=== PATIENT | female | born 1980 | race Caucasian/White ===

== ENCOUNTER → 2019-02-04 | Outpatient (CLI) | payer MEDICAID, SELFPAY ==
[2019-02-04 12:50] VITALS: BMI 31.8
--- NOTE | 2019-02-04 12:59 | RAD_ITS ---
STUDY: X-RAY - RIGHT ANKLE REASON FOR EXAM: Female, 38 years old. Lateral pain after a fall TECHNIQUE: 3 view(s) of the ankle. COMPARISON: None. FINDINGS: Normal visualized distal tibia and fibula. Normal medial and lateral malleoli. Normal tibiotalar articulation and ankle mortise. Normal visualized talus and calcaneus. The visualized subtalar, talonavicular, calcaneocuboid and tarsal articulations are normal. The soft tissue structures are unremarkable. RAD/Ankle min 3 Views IMPRESSION: Normal x-ray examination of the ankle. Electronically Signed: Gabe Flores MD at 13:11 EDT , Service support ,
== END | disposition home or self-care (01) ==
LOC: HPRAD 12:58
PROVIDERS: Referring Provider Physician Assistant Surgical; Visit Provider Physician Assistant Surgical
DX: S96.911A Strain of unspecified muscle and tendon at ankle and foot level, right foot, initial encounter (principal)
CPT/HCPCS: 73610

== ENCOUNTER → 2019-05-23 | Outpatient (CLI) | payer MEDICAID, SELFPAY ==
[2019-05-23 13:34] VITALS: BMI 31.8
--- NOTE | 2019-05-23 13:50 | RAD_ITS ---
STUDY: X-RAY - RIGHT KNEE REASON FOR EXAM: Pain, injury. TECHNIQUE: 4 view(s) of the knee. COMPARISON: None. FINDINGS: Normal visualized distal femur. Normal visualized proximal tibia and fibula. Normal proximal tibiofibular articulation. Normal medial femorotibial compartment. Normal lateral femorotibial compartment. Normal patellofemoral articulation. The soft tissue structures are unremarkable. RAD/Knee 4 or More Views IMPRESSION: Normal x-ray examination of the right knee. Electronically Signed: Homer Smith MD at 15:07 EDT Tel , Service support ,
== END | disposition home or self-care (01) ==
LOC: HPRAD 13:49
PROVIDERS: Referring Provider Orthopaedic Surgery; Visit Provider Orthopaedic Surgery
DX: S89.91XA Unspecified injury of right lower leg, initial encounter (principal)
CPT/HCPCS: 73564

== ENCOUNTER → 2019-06-11 | Outpatient (CLI) | payer MEDICAID, SELFPAY ==
[2019-05-24 18:29] VITALS: BMI 31.8
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
== END | disposition home or self-care (01) ==
LOC: MRI 07:10
PROVIDERS: Referring Provider Orthopaedic Surgery; Visit Provider Orthopaedic Surgery
DX: S89.91XA Unspecified injury of right lower leg, initial encounter (principal)
CPT/HCPCS: 73721

== ENCOUNTER 2019-08-24 18:00 | Outpatient (RCR) | payer MEDICAID, SELFPAY ==
[2019-06-13 08:07] VITALS: BMI 31.8
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
--- NOTE | 2019-11-28 15:53 | HP.PTDCNRP_ITS ---
CINDI OSHEA was seen in my office for initial evaluation on 06/22/19. The following Plan of Care was established for this patient: Initial Frequency: 2-3x /Week Initial Duration: 6 Weeks Patient/Client Instruction: Educate patient on: Condition, Plan of Care For the Purpose of:: To decrease pain, To decrease swelling/inflammation, To increase ROM, To improve nutrient delivery to tissue, To improve muscle performance and motor function, To improve ability to perform ADL's, To increase tolerance to activity/condition/position, To improve performance and independence with ADL's, To decrease level of supervision to perform tasks, To improve ability of physical actions for home/community/work/leisure, To improve gait and locomotor functions, To improve health of tissue, To decrease soft tissue restriction, To increase flexibility/ROM, To improve endurance, To impro ve balance, To improve safety with gait Therapeutic Exercise to Include: Strength training, Balance training, Gait and locomotor training, Passive ROM, Active ROM For the Purpose of:: To decrease pain, To decrease swelling/inflammation, To increase ROM, To improve nutrient delivery to tissue, To improve muscle performance and motor function, To improve ability to perform ADL's, To increase tolerance to activity/condition/position, To improve performance and independence with ADL's, To decrease level of supervision to perform tasks, To improve ability of physical actions for home/community/work/leisure, To improve gait and locomotor functions, To improve health of tissue, To decrease soft tissue restriction, To increase flexibility/ROM, To improve endurance, To improve balance, To improve safety with gait Functional Training to Include: Gait training For the Purpose of:: To improve gait and locomotor functions, To improve safety with gait Manual Therapy Techniques to Include: Passive ROM For the Purpose of:: To increase ROM, To increase flexibility/ROM Other electric stimulation: Yes Cryotherapy (ice pack, ice massage): Yes For the Purpose of:: To decrease pain, To decrease swelling/inflammation, To increase ROM, To improve nutrient delivery to tissue This patient was last seen in our office 08/24/19. Pertinent comments regarding their Physical therapy will appear below: Pt no-showed for her last appointment. She will be discharged from our care at this time. At this point I will be discontinuing this patient from physical therapy. I would be happy to see this patient again in the future if found appropriate by the physician. Thank you! Misa Jones, MPT
== END 2019-08-24 19:00 | disposition home or self-care (01) ==
LOC: PT 18:00
PROVIDERS: Referring Provider Orthopaedic Surgery; Visit Provider Orthopaedic Surgery
DX: S83.411D Sprain of medial collateral ligament of right knee, subsequent encounter (principal); S83.511D Sprain of anterior cruciate ligament of right knee, subsequent encounter; S80.01XD Contusion of right knee, subsequent encounter
CPT/HCPCS: 97014; 97110; 97161; G0283

== ENCOUNTER → 2021-05-21 17:21 | Outpatient (CLI) | payer MEDICAID, SELFPAY ==
--- NOTE | 2021-05-21 17:29 | RAD_ITS ---
HISTORY: Cough EXAMINATION/TECHNIQUE: XR Chest 2 Views: 2 views COMPARISON: 05/10/21 FINDINGS: LINES/DEVICES: None. LUNGS: No pulmonary consolidation, mass, or edema. No pleural effusion or pneumothorax. MEDIASTINUM AND CARDIOVASCULAR STRUCTURES: Cardiac silhouette not enlarged. Central airways and mediastinal contour are unremarkable. BONES AND SOFT TISSUES: No acute bony abnormalities. RAD/Chest PA and Lateral IMPRESSION: No radiographic evidence of acute cardiopulmonary disease. at 1817 Reported and signed by: Mason Jensen MD Electronically Signed: Mason Jensen MD at 18:16 EDT Tel , Service support ,
== END ==
PROVIDERS: Referring Provider Physician Assistant Surgical; Visit Provider Physician Assistant Surgical
DX: R09.89 Other specified symptoms and signs involving the circulatory and respiratory systems (principal)
CPT/HCPCS: 71046

== ENCOUNTER → 2021-06-12 15:06 | Outpatient (CLI) | payer MEDICAID, SELFPAY | PROVIDERS: Referring Provider Physician Assistant Surgical; Visit Provider Physician Assistant Surgical | DX: J01.90 Acute sinusitis, unspecified (principal); J20.9 Acute bronchitis, unspecified | CPT/HCPCS: 87633 ==

== ENCOUNTER → 2021-06-28 07:19 | Outpatient (CLI) | payer MEDICAID, SELFPAY | DX: Z20.822 Contact with and (suspected) exposure to COVID-19 (principal) | CPT/HCPCS: 36415; 86769 ==

== ENCOUNTER → 2023-03-24 | Outpatient (CLI) | payer MEDICAID, SELFPAY ==
--- NOTE | 2023-03-24 13:28 | RAD_ITS ---
INDICATION: Pain EXAMINATION/TECHNIQUE: X-RAY - LEFT XR Ankle Min 3 Views 3 VIEWS COMPARISON: None. FINDINGS: SOFT TISSUES: Medial soft tissue swelling. No radiopaque foreign body. BONES/JOINTS: No acute fracture or subluxation.. Normal alignment. Preservation of the joint space.. No sclerotic or destructive changes observed. RAD/Ankle min 3 Views IMPRESSION: Medial soft tissue swelling. No acute osseous abnormality of the left ankle. Electronically Signed: Gabe El MD at 14:21 EDT Reading Location ID and State: [id number] / Unknown , Service support ,
--- NOTE | 2023-03-24 13:28 | RAD_ITS ---
INDICATION: Pain EXAMINATION/TECHNIQUE: X-RAY - LEFT XR Foot Min 3 Views 3 VIEWS COMPARISON: None. FINDINGS: SOFT TISSUES: No soft tissue swelling or gas. No radiopaque foreign body. BONES/JOINTS: No acute fracture or subluxation.. Normal alignment. Preservation of the joint space.. No sclerotic or destructive changes observed. RAD/Foot min 3 Views IMPRESSION: Normal left foot. Electronically Signed: Gabe El MD at 14:20 EDT Reading Location ID and State: [id number] / Unknown , Service support ,
== END | disposition home or self-care (01) ==
PROVIDERS: Visit Provider Physician Assistant
DX: M79.672 Pain in left foot (principal); M25.572 Pain in left ankle and joints of left foot
CPT/HCPCS: 73610; 73630

== ENCOUNTER → 2023-11-17 | Outpatient (CLI) | payer MEDICAID, SELFPAY ==
--- NOTE | 2023-11-17 11:40 | RAD_ITS ---
STUDY: X-RAY - LEFT FOOT CLINICAL: Female, 42 years old. left lateral foot pain, painful lump appeared along base of 5th metatarsal, injury in March 2023, pain since then. -- xrays were taken then - normal TECHNIQUE: 3 view(s) of the foot. COMPARISON: None. FINDINGS: There is no evidence of an acute fracture or displaced bony fragment. No sclerosis or callus formation is seen that would indicate prior healing. Normal talus, calcaneus, and tarsal bones. Normal visualized subtalar, talonavicular, calcaneocuboid, tarsal and tarsometatarsal articulations. Normal metatarsi. Normal metatarsophalangeal joint of the great toe. Normal tibial and fibular sesamoid bones. Normal interphalangeal joint of the great toe. Normal phalanges of the great toe. Normal second through fifth metatarsophalangeal joints. Normal interphalangeal joints and phalanges of the lesser toes. The soft tissue structures are unremarkable. RAD/Foot min 3 Views IMPRESSION: 1. Normal x-ray examination of the foot. Electronically Signed: Franky Pate MD at 12:55 EDT Reading Location ID and State: [facility] / [place] , Service support ,
--- OUTSIDE RECORDS SUMMARY | 2023-11-18 00:43 | XMS RPT_ITS | CCD ---
Author Name Unknown Address [address] [place] [address] Organization [facility] Care Team Providers Care Uniform Maker Name Role Phone DANA KELLY-FAMILY SERVICE WORKER, ASTRID Primary Care Phys ician Unavailable Primary Care Provider UnavailAmina Herrmann BIT GRINDER, Astrid Primary Care Provider Latoya Herrmann BIT GRINDER, Astrid(Historical) Primary Car e Provider Unavailable Unavailable Primary Care Provider UnavailMELANIE Moe Attending Unavailable MELANIE LOUIS Attending Unavailable MELANIE LOUIS Attending Unavailable DANA OCEAN FISHING GUIDE-FAMILY SERVICE WORKER, ASTRID Primary Care Phys ician MIKE OCEAN FISHING GUIDE-LEENA HARRIS Attending Unav ailable DANA OCEAN FISHING GUIDE-FAMILY SERVICE WORKER, ASTRID Primary Care U navailable DANA BRISENON-FAMILY SERVICE WORKER, ASTRID Primary Care U navailable MIKE OCEAN FISHING GUIDE-FAMILY SERVICE WORKERLEENA Attending Unav ailable DANA OCEAN FISHING GUIDE-FAMILY SERVICE WORKER, ASTRID Primary Care U navailable LATOYA-ALIZE OCEAN FISHING GUIDE-FAMILY SERVICE WORKER, ASTRID Attending U navailable LATOYA-ALIZE OCEAN FISHING GUIDE-FAMILY SERVICE WORKER, ASTRID Primary Care U navailable MIKE OCEAN FISHING GUIDE-FAMILY SERVICE WORKERLEENA Attending Unav ailable MIKE OCEAN FISHING GUIDE-FAMILY SERVICE WORKERLEENA Attending Unav ailable LATOYA-ALIZE OCEAN FISHING GUIDE-FAMILY SERVICE WORKER, ASTRID Primary Care U navailable LATOYA-ALIZE OCEAN FISHING GUIDE-FAMILY SERVICE WORKER, ASTRID Primary Care U navailable MIKE OCEAN FISHING GUIDE-FAMILY SERVICE WORKERLEENA Attending Unav LORENA Jeong MD Attending Unavailable DANA OCEAN FISHING GUIDE-FAMILY SERVICE WORKER, ASTRID Primary Care U FELTON Sykes MD Attending Unavailable [facility] LEENA Villatoro Attending [facility], [facility] U navailable SEDRICK RUSH DO Attending Unavailable LATOYA-HERRMANN OCEAN FISHING GUIDE-[facility], [facility] L[facility] Villatoro Attending [facility] LATOYA[facility], [facility] ANAI RAO, DR BARTON Attending Unavailable [facility], NAT Attending Unavailable Allergies Allergy Classification Reported Allergen(s) Allergy Type Date of Onset Reaction(s) Facility (19 sources) meloxicam; Translations: [meloxicam] Drug Allergy 10-20-2018 Nausea and vomiting (disorder), Itching, GI Upset, Rash [facility] Work Phone: (20 sources) Naproxen; Translations: [naproxen] Drug Allergy 10-20-2018 Nausea and vomiting (disorder), Mental Status Change, Itching, Vomiting, Rash, Shortness of Breath, Anxiety, Nausea And Vomiting [facility] Work Phone: (2 sources) meloxicam Drug Allergy 10-20-2018 Itching, Nausea And Vomiting, Rash [facility] Medications Current Medications Medication Drug Class(es) Dates Sig (Normalized) Sig (Original) acetaminophen 500 mg oral tablet (1 source) Start: 10-15-2022 End: 10-19-2022 take 2 tablets by mouth every eight hours as needed for pain acetaminophen (TYLENOL EXTRA STRENGTH) 500 mg tablet Indications: Strep throat Take 2 tablets by mouth every 8 hours as needed for pain or fever (specify) (100.5 or greater) for up to 4 days. FOR PAIN. 30 tablet 0 10/15/2022 10/19/2022 Active Completed/Discontinued Medications Medication Drug Class(es) Dates Sig (Normalized) Sig (Original) sensor 200 actuat albuterol 0.09 mg/actuat dry powder inhaler (11 sources) beta2-Adrenergic Agonist Start: 10-25-2018 albuterol sulfate 90 mcg/actuation aebs as needed. 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 Other diseases of kidney and ureters (5 sources) Hydronephrosis 12-30-2022 Episodic Other infections; including parasitic (1 source) History of parasitic disease; Translations: [Personal history of other infectious and parasitic diseases] Episodic Other inflammatory condition of skin (1 source) Seborrheic dermatitis; Translations: [Seborrheic dermatitis, unspecified] 05-20-2023 Episodic Other upper respiratory infections (2 sources) Chronic sinusitis; Translations: [Chronic sinusitis, unspecified] Onset: 08-02-2023 08-02-2023 Chronic Unclassified (12 sources) Eye glasses, device (physical object) 12-12-2014 Unclassified (12 sources) Throat clearing, function (observable entity) Onset: 09-07-2013 12-18-2014 Past or Other Problems Problem Classification Problem Date Documented Da te Episodic/Chronic Other diseases of kidney and ureters (2 sources) Unspecified hydronephrosis; Translations: [Unspecified hydronephrosis] Onset: 12-31-2022 Episodic Other infections; including parasitic (1 source) Personal history of other infectious and parasitic diseases; Translations: [History of pinworm infection] Onset: 09-17-2022 Episodic Other inflammatory condition of skin (2 sources) Seborrheic dermatitis, unspecified; Translations: [Seborrheic dermatitis, unspecified] Onset: 05-20-2023 Episodic Other upper respiratory infections (4 sources) Sore throat symptom; Translations: [Acute pharyngitis, unspecified] Onset: 10-15-2022 Episodic Results Test Name Value Interpretation Reference Range Facil ity Vital Signs Date Time Vital Sign Value Performing Clinician Facility 08-02-2023 11:10-0500 Body temperature 97.7 [degF] Melanie Louis DO Work Phone: [facility] 08-02-2023 11:10-0500 Body weight 89.81 kg Melanie Louis DO Work Phone: [facility] 08-02-2023 11:10-0500 Diastolic blood pressure 85 mm[Hg] Melanie Louis DO Work Phone: [facility] 08-02-2023 11:10-0500 Heart rate 72 /min Melanie Louis DO Work Phone: [facility] 08-02-2023 11:10-0500 Respiratory rate 16 /min Melanie Louis DO Work Phone: [facility] 08-02-2023 11:10-0500 SaO2% (BldA) [Mass fraction] 100 % Melanie Louis DO Work Phone: [facility] 08-02-2023 11:10-0500 Systolic blood pressure 130 mm[Hg] Melanie Louis DO Work Phone: [facility] 10-15-2022 10:20-0500 Body temperature 97.9 [degF] Melanie Louis DO Work Phone: [facility] 10-15-2022 10:20-0500 Body weight 83.83 kg Melanie Louis DO Work Phone: [facility] 10-15-2022 10:20-0500 Diastolic blood pressure 79 mm[Hg] Melanie Louis DO Work Phone: [facility] 10-15-2022 10:20-0500 Heart rate 58 /min Melanie Louis DO Work Phone: [facility] 10-15-2022 10:20-0500 Respiratory rate 18 /min Melanie Louis DO Work Phone: [facility] 10-15-2022 10:20-0500 SaO2% (BldA) [Mass fraction] 100 % Melanie Louis DO Work Phone: [facility] 10-15-2022 10:20-0500 Systolic blood pressure 123 mm[Hg] Melanie Louis DO Work Phone: [facility] 09-17-2022 18:04-0500 Body temperature 98.01 [degF] Melanie Louis DO Work Phone: [facility] 09-17-2022 18:04-0500 Body weight 86.18 kg Melanie Louis DO Work Phone: [facility] 09-17-2022 18:04-0500 Diastolic blood pressure 74 mm[Hg] Melanie Louis DO Work Phone: [facility] 09-17-2022 18:04-0500 Heart rate 73 /min Melanie Louis DO Work Phone: [facility] 09-17-2022 18:04-0500 Respiratory rate 16 /min Melanie Louis DO Work Phone: [facility] 09-17-2022 18:04-0500 SaO2% (BldA) [Mass fraction] 100 % Melanie Louis DO Work Phone: [facility] 09-17-2022 18:04-0500 Systolic blood pressure 118 mm[Hg] Melanie Louis DO Work Phone: [facility] 03-23-2022 09:24-0400 Body temperature 97.9 [degF] Jd Royal MD Work Phone: [facility] 03-23-2022 09:24-0400 Body weight 84.91 kg Jd Royal MD Work Phone: [facility] 03-23-2022 09:24-0400 Diastolic blood pressure 82 mm[Hg] Jd Royal MD Work Phone: [facility] 03-23-2022 09:24-0400 Heart rate 60 /min Jd Royal MD Work Phone: [facility] 03-23-2022 09:24-0400 Respiratory rate 18 /min Jd Royal MD Work Phone: [facility] 03-23-2022 09:24-0400 SaO2% (BldA) [Mass fraction] 100 % Jd Royal MD Work Phone: [facility] 03-23-2022 09:24-0400 Systolic blood pressure 142 mm[Hg] Jd Royal MD Work Phone: [facility] 09-27-2021 14:00-0500 Diastolic blood pressure 77 mm[Hg] LORENA WOODARD MD [facility] 09-27-2021 14:00-0500 Heart rate 100 /min LORENA WOODARD MD [facility] 09-27-2021 14:00-0500 Mean blood pressure 97 mm[Hg] LORENA WOODARD MD [facility] 09-27-2021 14:00-0500 Respiratory rate 25 /min LORENA WOODARD MD [facility] 09-27-2021 14:00-0500 Systolic blood pressure 136 mm[Hg] LORENA WOODARD MD [facility] 09-27-2021 13:55-0500 Heart rate 74 /min LORENA WOODARD MD [facility] 09-27-2021 12:41-0500 Body temperature 98.78 [degF] LORENA WOODARD MD [facility] 09-27-2021 12:41-0500 diastolic 86 mm[Hg] LORENA WOODARD MD [facility] 09-27-2021 12:41-0500 Heart rate 79 /min LORENA WOODARD MD [facility] 09-27-2021 12:41-0500 Respiratory rate 16 /min LORENA WOODARD MD [facility] 09-27-2021 12:41-0500 systolic 125 mm[Hg] LORENA WOODARD MD [facility] 09-26-2021 13:49-0500 Body height 160 cm LORENA WOODARD MD [facility] 09-26-2021 13:49-0500 Body weight 86.4 kg LORENA WOODARD MD [facility] 09-26-2021 13:49-0500 Body weight 33.75 kg/m2 LORENA WOODARD MD [facility] Encounters Encounter Date Encounter Type Care Provider Facility Start: 10-20-2023 Telephone encounter ALuis Carlos Wright [facility] Gastroenterology Procedures Date Procedure Procedure Detail Performing Clinician Start: 03-23-2022 Iaad ia streptococcu s group a Jd Royal MD Work Phone: Start: 03-23-2022 Adult depression scr eening assessment Jd Royal MD Work Phone: Start: 09-07-2014 Repair of umbilical hernia ASTRID CORTEZ OCEAN FISHING GUIDE-FAMILY SERVICE WORKER Start: 09-07-2011 Incisional hernia (disorder) ASTRID CORTEZ OCEAN FISHING GUIDE-FAMILY SERVICE WORKER Start: 09-07-2010 Excision of soft tissue ASTRID CORTEZ OCEAN FISHING GUIDE-FAMILY SERVICE WORKER Plan of Treatment Date Care Activity Detail Author Start: 2042 RSV Immunization aged 60 or older (1 - 1-dose 60+ series) RSV Immunization aged 60 or older (1 - 1-dose 60+ series) [facility] Start: 2032 Zoster Vaccines (1 of 2) Zoster Vaccines (1 of 2) [facility] Start: 07-25-2025 DTaP/Tdap/Td Vaccines (2 - Td or Tdap) DTaP/Tdap/Td Vaccines (2 - Td or Tdap) [facility] Start: 07-25-2025 Urine microalbumin profile DTaP,Tdap,Td Vaccine (2 - Td or Tdap) [facility] Start: 01-06-2024 End: 01-06-2024 Patient encounter procedure 01/06/2024 8:40 AM EDT Office Visit [facility] Gastroenterology [address] [place] [id number] Shirlene Dai APRN - FAMILY SERVICE WORKER [address] [place] [address] [facility] Start: 05-20-2023 End: 05-20-2023 Patient encounter procedure 05/20/2023 10:40 AM EDT Office Visit [facility] Dermatology [address] [place] [id number] Nat Morrow PA [address] [place] [address] [facility] Start: 05-08-2023 Influenza vaccination [facility] Start: 03-23-2023 Adult depression screening assessment DEPRESSION SCREENING [facility] Start: 2022 Mammography [facility] Start: 2022 Screening for malignant neoplasm of breast Mammogram [facility] Start: 09-07-2022 DEPRESSION ASSESSMENT DEPRESSION ASSESSMENT [facility] Start: 05-08-2022 Influenza vaccination INFLUENZA (#1) [facility] Start: 10-01-2015 Varicella vaccination Varicella Vaccines (1 of 2 - 2-dose childhood series) [facility] Start: 2012 HPV TESTING HPV TESTING [facility] Start: 2012 Screening for malignant neoplasm of cervix [facility] Start: 11-21-2003 PAP TESTING PAP TESTING [facility] Start: 11-21-2003 Screening for malignant neoplasm of cervix Pap Smear [facility] Start: 2001 DTaP/Tdap/Td Vaccines (1 - Tdap) DTaP/Tdap/Td Vaccines (1 - Tdap) [facility] Start: 2001 Urine microalbumin profile DTAP,TDAP,TD (1 - Tdap) [facility] Start: 2000 HEPATITIS C SCREENING HEPATITIS C SCREENING [facility] Start: 2000 Hepatitis C screening Hepatitis C Screening [facility] Start: 2000 HIV SCREENING HIV SCREENING [facility] Start: 1994 Depression Screening Depression Screening [facility] Start: 11-21-1983 MMR Vaccines (1 of 1 - Standard series) MMR Vaccines (1 of 1 - Standard series) [facility] Start: 11-21-1983 Varicella vaccination Varicella Vaccines (1 of 2 - 2-dose childhood series) [facility] Start: 05-23-1983 COVID-19 VACCINE (#1) COVID-19 VACCINE (#1) [facility] Start: 1982 HEPATITIS B (1 of 3 - 3-dose series) HEPATITIS B (1 of 3 - 3-dose series) [facility] Start: 1982 Hepatitis B Vaccine (1 of 3 - 3-dose series) Hepatitis B Vaccine (1 of 3 - 3-dose series) [facility] Start: 1982 Hepatitis B Vaccines (1 of 3 - 3-dose series) Hepatitis B Vaccines (1 of 3 - 3-dose series) [facility] Start: 1982 HIV screening HIV Screening [facility] Bacteria identified in Throat by Culture THROAT CULTURE Microbiology Routine Sore throat 03/23/2022 9:44 AM EDT [facility] Work Phone: Immunizations Immunization Date Immunization Notes Care Provider Fa cilijuan 07-16-2020 influenza virus vacc ine, unspecified formulation Nat STEELE Work Phone: [facility] Payers Date Payer Category Payer Medicaid [id number] 2020 Medicaid [employer] [id number] 2020-Present [phone] [address] [place] [address] Medicaid [id number] 2020 Medicaid [id number] 2020 Medicaid [id number] 1982 Unknown [id number] 1982 Unknown [id number]. 1982 Unknown [id number]. 1982 Unknown [id number]. 1982 Unknown [id number]. 1982 Unknown [id number]. 1982 Unknown [id number]. 1982 Unknown [id number] [id number]. 1982 Unknown [id number]. 1982 Unknown [id number] [id number]. 1982 Unknown [id number]. 1982 Unknown [id number] Social History Date Type Detail Facility Start: 08-04-2018 End: 09-17-2022 Never smoked tobacco (finding) [facility] Sex Assigned At Female [facility] Tobacco smoking status NHIS Tobacco smoking consumption unknown [facility] Start: 1980 Sex Assigned At Not on file [facility] Start: 03-23-2022 End: 09-17-2022 Tobacco use and exposure Smokeless tobacco non-user [facility] Start: 03-23-2022 End: 08-02-2023 Alcohol intake Ex-drinker (finding) [facility] Start: 03-13-2022 End: 05-20-2023 Exposure to SARS-CoV-2 (event) Not sure [facility] Start: 10-20-2018 End: 05-20-2023 Alcohol intake Current non-drinker of alcohol (finding) [facility] Start: 05-20-2023 End: 08-02-2023 Gender identity Not on file [facility] Start: 05-20-2023 End: 08-02-2023 History of Social function [facility] Adult Depression Screening Assessment 0 [facility] NEGATED: Highlighted rowStart: WOLFF History of tobacco use Passive smoker [facility] Clinical Notes 06-21-2020 to 10-21-2023 Telephone Encounter - Terrell Wright MA - 10/21/2023 8:35 AM ESTTelephone Encounter - Terrell Wright MA - 10/21/2023 8:35 AM ESTTelephone Encounter - Terrell Wright MA - 10/20/2023 10:42 AM EST Note Date & Type Note Facility 10-21-2023 Telephone encounter Note Formatting of this note might be differe nt from the original. Called pt to r/s her BIT GRINDER appt due to it being a change in the provider's schedule, pt did not answer LM and provided office number. [facility] 10-21-2023 Miscellaneous Notes Formatting of this note might be differe nt from the original. Called pt to r/s her BIT GRINDER appt due to it being a change in the provider's schedule, pt did not answer LM and provided office number. Called pt to r/s her BIT GRINDER appt scheduled on 10/21/23 w/ Crystal Meranto @ 2:00 pm, due to it being a change in the provider's schedule. Pt did not answer LM and provided office number. documented in this encounter [facility] 10-20-2023 Telephone encounter Note Formatting of this note might be differe nt from the original. Called pt to r/s her BIT GRINDER appt scheduled on 10/21/23 w/ Crystal Meranto @ 2:00 pm, due to it being a change in the provider's schedule. Pt did not answer LM and provided office number. [facility] 08-02-2023 Note HNO ID: [id number] Author: Melanie Louis, DO Service: ? Author Type: Physician Type: Progress Notes Filed: 08/02/2023 11:43 AM Note Text: Cindi Oshea is a 42 year old FEMALE who presents with Cough (Congestion 2 weeks) HPI History reviewed. No pertinent past medical history. There is no problem list on file for this patient. Current Outpatient Medications Medication Sig Dispense Refill ALBUTEROL INHALATION Inhale as instructed. vitamin Q-zccronuywdat-ggtvaxz 500 mg chew Take 1,000 mg by mouth. calcium carbonate (OS-MARK ANTHONY 500) 500 mg calcium (1,250 mg) tablet Take by mouth once daily. Ascorbic Acid (VITAMIN C) 100 mg tablet once daily. calcium phosphate dibas/vit D3 (VITAMIN D, WITH CALCIUM, ORAL) Vitamin D estradiol 5 mg/mL injection Inject 1 mg intramuscularly every 3 months. medroxyprogesterone acetate (DEPO-PROVERA INTRAMUSC.) every 3 months. amoxicillin (AMOXIL) 875 mg tablet Take 1 tablet by mouth two times a day for 10 days. 20 tablet 0 Amafkypizowrijz-Dpgxnfsht-MG (BROMFED DM) 2-30-10 mg/5 mL syrup Take 5 mL by mouth four times a day as needed for up to 7 days. 120 mL 0 dexAMETHasone (DECADRON) 4 mg tablet Take 1 tablet by mouth once daily for 4 days. 4 tablet 0 budesonide/formoterol fumarate (SYMBICORT INHALATION) Inhale as instructed. (Patient not taking: Reported on 10/15/2022) ferrous sulfate 325 mg (65 mg iron) tablet Take 325 mg by mouth. (Patient not taking: Reported on 10/15/2022) omeprazole (PRILOSEC) 40 mg capsule Take 40 mg by mouth once daily. (Patient not taking: Reported on 10/15/2022) albuterol sulfate 90 mcg/actuation aebs as needed. (Patient not taking: Reported on 10/15/2022) budesonide-formoterol (SYMBICORT) 160-4.5 mcg/actuation inhaler as needed. (Patient not taking: Reported on 10/15/2022) cetirizine (ZYRTEC) 10 mg tablet cetirizine 10 mg tablet take 1 tablet by mouth once daily (Patient not taking: Reported on 10/15/2022) colestipol (COLESTID) 1 gram tablet (Patient not taking: Reported on 10/15/2022) No current facility-administered medications for this visit. Social History Tobacco Use Smoking status: Never Passive exposure: Never Smokeless tobacco: Never Vaping Use Vaping Use: Never used Substance Use Topics Alcohol use: Not Currently Drug use: Not Currently Alcohol Use: Not Currently Tobacco Use: Never History reviewed. No pertinent family history. Review of Systems Constitutional: Positive for chills, fever and malaise/fatigue. HENT: Positive for ear pain, sinus pain and sore throat. Respiratory: Positive for cough, sputum production and wheezing. Musculoskeletal: Positive for myalgias. All other systems reviewed and are negative. BP 130/85 Pulse 72 Temp 97.7 Resp 16 Wt 198 lb (89.8kg) SpO2 100% Physical Exam Vitals and nursing note reviewed. Constitutional: Appearance: Normal appearance. HENT: Head: Normocephalic. Right Ear: Tympanic membrane normal. Left Ear: Tympanic membrane normal. Nose: Congestion and rhinorrhea present. Mouth/Throat: Pharynx: Posterior oropharyngeal erythema present. Eyes: Extraocular Movements: Extraocular movements intact. Pupils: Pupils are equal, round, and reactive to light. Cardiovascular: Rate and Rhythm: Normal rate and regular rhythm. Heart sounds: Normal heart sounds. Pulmonary: Effort: Pulmonary effort is normal. Breath sounds: Wheezing and rhonchi present. Musculoskeletal: General: Normal range of motion. Lymphadenopathy: Cervical: Cervical adenopathy present. Skin: General: Skin is warm. Capillary Refill: Capillary refill takes 2 to 3 seconds. Neurological: General: No focal deficit present. Mental Status: She is alert. Psychiatric: Mood and Affect: Mood normal. ASSESSMENT/PLAN: 1. Sinobronchitis - ICD9: 473.9, 490, ICD10: J32.9, J40 - AMOXICILLIN 875 MG TABLET - [id number] 2 MG-30 MG-10 MG/5 ML ORAL SYRUP - DEXAMETHASONE 4 MG TABLET Melanie D [facility] 08-02-2023 History of Present illness Narrative Formatting of this note is different fro m the original. Cindi Oshea is a 42 year old FEMALE who presents with Cough (Congestion 2 weeks) HPI History reviewed. No pertinent past medical history. There is no problem list on file for this patient. Current Outpatient Medications Medication Sig Dispense Refill ALBUTEROL INHALATION Inhale as instructed. vitamin L-tnimszzdlvvm-pnnfujf 500 mg chew Take 1,000 mg by mouth. calcium carbonate (OS-MARK ANTHONY 500) 500 mg calcium (1,250 mg) tablet Take by mouth once daily. Ascorbic Acid (VITAMIN C) 100 mg tablet once daily. calcium phosphate dibas/vit D3 (VITAMIN D, WITH CALCIUM, ORAL) Vitamin D estradiol 5 mg/mL injection Inject 1 mg intramuscularly every 3 months. medroxyprogesterone acetate (DEPO-PROVERA INTRAMUSC.) every 3 months. amoxicillin (AMOXIL) 875 mg tablet Take 1 tablet by mouth two times a day for 10 days. 20 tablet 0 Okgvvlzhspzihef-Bnggankcs-JH (BROMFED DM) 2-30-10 mg/5 mL syrup Take 5 mL by mouth four times a day as needed for up to 7 days. 120 mL 0 dexAMETHasone (DECADRON) 4 mg tablet Take 1 tablet by mouth once daily for 4 days. 4 tablet 0 budesonide/formoterol fumarate (SYMBICORT INHALATION) Inhale as instructed. (Patient not taking: Reported on 10/15/2022) ferrous sulfate 325 mg (65 mg iron) tablet Take 325 mg by mouth. (Patient not taking: Reported on 10/15/2022) omeprazole (PRILOSEC) 40 mg capsule Take 40 mg by mouth once daily. (Patient not taking: Reported on 10/15/2022) albuterol sulfate 90 mcg/actuation aebs as needed. (Patient not taking: Reported on 10/15/2022) budesonide-formoterol (SYMBICORT) 160-4.5 mcg/actuation inhaler as needed. (Patient not taking: Reported on 10/15/2022) cetirizine (ZYRTEC) 10 mg tablet cetirizine 10 mg tablet take 1 tablet by mouth once daily (Patient not taking: Reported on 10/15/2022) colestipol (COLESTID) 1 gram tablet (Patient not taking: Reported on 10/15/2022) No current facility-administered medications for this visit. Social History Tobacco Use Smoking status: Never Passive exposure: Never Smokeless tobacco: Never Vaping Use Vaping Use: Never used Substance Use Topics Alcohol use: Not Currently Drug use: Not Currently Alcohol Use: Not Currently Tobacco Use: Never History reviewed. No pertinent family history. Review of Systems Constitutional: Positive for chills, fever and malaise/fatigue. HENT: Positive for ear pain, sinus pain and sore throat. Respiratory: Positive for cough, sputum production and wheezing. Musculoskeletal: Positive for myalgias. All other systems reviewed and are negative. BP 130/85 Pulse 72 Temp 97.7 Resp 16 Wt 198 lb (89.8kg) SpO2 100% Physical Exam Vitals and nursing note reviewed. Constitutional: Appearance: Normal appearance. HENT: Head: Normocephalic. Right Ear: Tympanic membrane normal. Left Ear: Tympanic membrane normal. Nose: Congestion and rhinorrhea present. Mouth/Throat: Pharynx: Posterior oropharyngeal erythema present. Eyes: Extraocular Movements: Extraocular movements intact. Pupils: Pupils are equal, round, and reactive to light. Cardiovascular: Rate and Rhythm: Normal rate and regular rhythm. Heart sounds: Normal heart sounds. Pulmonary: Effort: Pulmonary effort is normal. Breath sounds: Wheezing and rhonchi present. Musculoskeletal: General: Normal range of motion. Lymphadenopathy: Cervical: Cervical adenopathy present. Skin: General: Skin is warm. Capillary Refill: Capillary refill takes 2 to 3 seconds. Neurological: General: No focal deficit present. Mental Status: She is alert. Psychiatric: Mood and Affect: Mood normal. ASSESSMENT/PLAN: 1. Sinobronchitis - ICD9: 473.9, 490, ICD10: J32.9, J40 - AMOXICILLIN 875 MG TABLET - [id number]-[id number]-GZ 2 MG-30 MG-10 MG/5 ML ORAL SYRUP - DEXAMETHASONE 4 MG TABLET Melanie Louis documented in this encounter [facility] 05-20-2023 History of Present illness Narrative Formatting of this note is different fro m the original. DATE OF SERVICE: 05/20/2023 PATIENT NAME: Cindi Oshea : 1980 AGE: 42 y.o. CLINIC NUMBER: [id number] Visit type: New Chief Complaint Patient presents with Seborrheic Dermatitis BIT GRINDER (RALPH) Subjective HISTORY OF PRESENT ILLNESS: This is a 42 y.o. female who presents for evaluation of red patch on forehead. Patient has seen a reactor kettle operator in the past, has seen Beata Soares PA-C. C/o-red patch to the forehead x few months coming and going. Admits redness, flaking. Denies scaling. Admits itching, burning. Denies pain. Admits previous treatment with lotions and vaseline. Patient states the area is worse in the winter. Currently using Noxema face wash. Are you , trying to become or ? No History of pacemaker/ defibrillator? No History of HIV/ Hep C? No Allergies to Lidocaine, Epinephrine, Latex or Adhesive? No Social History: Born/raised in [place]. Excessive sun exposure: Yes Boated regularly: No Worked on farmed or life teacher: No Used tanning beds: Yes Patient does wear SPF. Patient does use additional sun protection measures. REVIEW OF SYSTEMS: General/Constitutional Feels well; denies h/o fatigue, weight change, night sweats, fevers or chills. Lymphatic Denies swollen lymph nodes. Dermatologic As per HPI; denies new rashes, itching, hair loss, skin or nail changes. There were no vitals filed for this visit. GENERAL APPEARANCE:?Alert & oriented x3, pleasant. Well developed, well nourished. PSYCH: appropriate mood and affect 1. Seborrheic dermatitis Right Forehead Diffuse scaling with underlying erythema [x]Chronic []Acute []Stable [x]Flaring/Exacerbation Start: Ketoconazole cream twice daily Educated and reassured. Treatment options, risks, benefits, and expectations reviewed. Related Medications ketoconazole (NIZOral) 2 % cream Apply a thin layer to affected to areas 1-2x daily. Orders Placed This Encounter Medications ketoconazole (NIZOral) 2 % cream Sig: Apply a thin layer to affected to areas 1-2x daily. Dispense: 60 g Refill: 3 Follow up if symptoms worsen or fail to improve. IVETTE Walker 05/20/23 7:21 AM REFERRING MD: documented in this encounter [facility] 03-20-2023 Telephone encounter Note Formatting of this note might be differe nt from the original. Name of Caller: Cindi Contact Reason for Appointment: Pt states she is an old Pt of provider and would like to see about making an appt for her and her daughter on the same day. Pt states best time to reach her is on her lunch hr 12-12:30 or after 5:30. Please advise Office Name: [facility] [place] [facility] 03-20-2023 Miscellaneous Notes Formatting of this note might be differe nt from the original. Name of Caller: Cindi Contact Reason for Appointment: Pt states she is an old Pt of provider and would like to see about making an appt for her and her daughter on the same day. Pt states best time to reach her is on her lunch hr 12-12:30 or after 5:30. Please advise Office Name: [facility] [place] documented in this encounter [facility] 02-10-2023 Miscellaneous Notes Formatting of this note might be differe nt from the original. Received referral from Táximo. Called PT who sts she does not need an appt here are she has a urologist at [facility]. Jerome MCCRAY. Will notify Táximo. Rosamaria Remy documented in this encounter [facility] 10-15-2022 Note HNO ID: [id number] Author: Melanie Louis, DO Service: ? Author Type: Physician Type: Progress Notes Filed: 10/15/2022 11:31 AM Note Text: Cindi Oshea is a 41 year old FEMALE who presents with Sore Throat (Started yesterday /) HPI History reviewed. No pertinent past medical history. There is no problem list on file for this patient. Current Outpatient Medications Medication Sig Dispense Refill ALBUTEROL INHALATION Inhale as instructed. calcium carbonate (OS-MARK ANTHONY 500) 500 mg calcium (1,250 mg) tablet Take by mouth once daily. Ascorbic Acid (VITAMIN C) 100 mg tablet once daily. calcium phosphate dibas/vit D3 (VITAMIN D, WITH CALCIUM, ORAL) Vitamin D medroxyprogesterone acetate (DEPO-PROVERA INTRAMUSC.) every 3 months. amoxicillin (AMOXIL) 875 mg tablet Take 1 tablet by mouth twice daily for 10 days. 20 tablet 0 acetaminophen (TYLENOL EXTRA STRENGTH) 500 mg tablet Take 2 tablets by mouth every 8 hours as needed for pain or fever (specify) (100.5 or greater) for up to 4 days. FOR PAIN. 30 tablet 0 vitamin M-aggnkjpnbrmu-jmjlhuw 500 mg chew Take 1,000 mg by mouth. (Patient not taking: Reported on 10/15/2022) budesonide/formoterol fumarate (SYMBICORT INHALATION) Inhale as instructed. (Patient not taking: Reported on 10/15/2022) ferrous sulfate 325 mg (65 mg iron) tablet Take 325 mg by mouth. (Patient not taking: Reported on 10/15/2022) omeprazole (PRILOSEC) 40 mg capsule Take 40 mg by mouth once daily. (Patient not taking: Reported on 10/15/2022) albuterol sulfate 90 mcg/actuation aebs as needed. (Patient not taking: Reported on 10/15/2022) budesonide-formoterol (SYMBICORT) 160-4.5 mcg/actuation inhaler as needed. (Patient not taking: Reported on 10/15/2022) cetirizine (ZYRTEC) 10 mg tablet cetirizine 10 mg tablet take 1 tablet by mouth once daily (Patient not taking: Reported on 10/15/2022) colestipol (COLESTID) 1 gram tablet (Patient not taking: Reported on 10/15/2022) estradiol 5 mg/mL injection Inject 1 mg intramuscularly every 3 months. (Patient not taking: Reported on 10/15/2022) No current facility-administered medications for this visit. Social History Tobacco Use Smoking status: Never Passive exposure: Never Smokeless tobacco: Never Vaping Use Vaping Use: Never used Substance Use Topics Alcohol use: Not Currently Drug use: Not Currently Alcohol Use: Not Currently Tobacco Use: Never History reviewed. No pertinent family history. Review of Systems Constitutional: Positive for chills, fever and malaise/fatigue. HENT: Positive for congestion, sinus pain and sore throat. Respiratory: Positive for cough. All other systems reviewed and are negative. BP 123/79 Pulse 58 Temp (Src) 97.9 (Temporal) Resp 18 Wt 184 lb 12.8 oz (83.8kg) SpO2 100% Physical Exam Vitals and nursing note reviewed. Constitutional: Appearance: Normal appearance. HENT: Head: Normocephalic and atraumatic. Nose: Congestion and rhinorrhea present. Mouth/Throat: Pharynx: Oropharyngeal exudate and posterior oropharyngeal erythema present. Cardiovascular: Rate and Rhythm: Normal rate and regular rhythm. Pulses: Normal pulses. Heart sounds: Normal heart sounds. Pulmonary: Breath sounds: Wheezing and rhonchi present. Skin: General: Skin is warm. Capillary Refill: Capillary refill takes less than 2 seconds. Neurological: General: No focal deficit present. Mental Status: She is alert. ASSESSMENT/PLAN: 1. Strep throat - ICD9: 034.0, ICD10: J02.0 - suspect strep - Discussed supportive care treatment with fluids, rest and analgesia. - AMOXICILLIN 875 MG TABLET - ACETAMINOPHEN 500 MG TABLET Melanie Flower [facility] 10-15-2022 History of Present illness Narrative Formatting of this note is different fro m the original. Cindi Oshea is a 41 year old FEMALE who presents with Sore Throat (Started yesterday /) HPI History reviewed. No pertinent past medical history. There is no problem list on file for this patient. Current Outpatient Medications Medication Sig Dispense Refill ALBUTEROL INHALATION Inhale as instructed. calcium carbonate (OS-MARK ANTHONY 500) 500 mg calcium (1,250 mg) tablet Take by mouth once daily. Ascorbic Acid (VITAMIN C) 100 mg tablet once daily. calcium phosphate dibas/vit D3 (VITAMIN D, WITH CALCIUM, ORAL) Vitamin D medroxyprogesterone acetate (DEPO-PROVERA INTRAMUSC.) every 3 months. amoxicillin (AMOXIL) 875 mg tablet Take 1 tablet by mouth twice daily for 10 days. 20 tablet 0 acetaminophen (TYLENOL EXTRA STRENGTH) 500 mg tablet Take 2 tablets by mouth every 8 hours as needed for pain or fever (specify) (100.5 or greater) for up to 4 days. FOR PAIN. 30 tablet 0 vitamin D-lzjrogmmgued-bbgkcxa 500 mg chew Take 1,000 mg by mouth. (Patient not taking: Reported on 10/15/2022) budesonide/formoterol fumarate (SYMBICORT INHALATION) Inhale as instructed. (Patient not taking: Reported on 10/15/2022) ferrous sulfate 325 mg (65 mg iron) tablet Take 325 mg by mouth. (Patient not taking: Reported on 10/15/2022) omeprazole (PRILOSEC) 40 mg capsule Take 40 mg by mouth once daily. (Patient not taking: Reported on 10/15/2022) albuterol sulfate 90 mcg/actuation aebs as needed. (Patient not taking: Reported on 10/15/2022) budesonide-formoterol (SYMBICORT) 160-4.5 mcg/actuation inhaler as needed. (Patient not taking: Reported on 10/15/2022) cetirizine (ZYRTEC) 10 mg tablet cetirizine 10 mg tablet take 1 tablet by mouth once daily (Patient not taking: Reported on 10/15/2022) colestipol (COLESTID) 1 gram tablet (Patient not taking: Reported on 10/15/2022) estradiol 5 mg/mL injection Inject 1 mg intramuscularly every 3 months. (Patient not taking: Reported on 10/15/2022) No current facility-administered medications for this visit. Social History Tobacco Use Smoking status: Never Passive exposure: Never Smokeless tobacco: Never Vaping Use Vaping Use: Never used Substance Use Topics Alcohol use: Not Currently Drug use: Not Currently Alcohol Use: Not Currently Tobacco Use: Never History reviewed. No pertinent family history. Review of Systems Constitutional: Positive for chills, fever and malaise/fatigue. HENT: Positive for congestion, sinus pain and sore throat. Respiratory: Positive for cough. All other systems reviewed and are negative. BP 123/79 Pulse 58 Temp (Src) 97.9 (Temporal) Resp 18 Wt 184 lb 12.8 oz (83.8kg) SpO2 100% Physical Exam Vitals and nursing note reviewed. Constitutional: Appearance: Normal appearance. HENT: Head: Normocephalic and atraumatic. Nose: Congestion and rhinorrhea present. Mouth/Throat: Pharynx: Oropharyngeal exudate and posterior oropharyngeal erythema present. Cardiovascular: Rate and Rhythm: Normal rate and regular rhythm. Pulses: Normal pulses. Heart sounds: Normal heart sounds. Pulmonary: Breath sounds: Wheezing and rhonchi present. Skin: General: Skin is warm. Capillary Refill: Capillary refill takes less than 2 seconds. Neurological: General: No focal deficit present. Mental Status: She is alert. ASSESSMENT/PLAN: 1. Strep throat - ICD9: 034.0, ICD10: J02.0 - suspect strep - Discussed supportive care treatment with fluids, rest and analgesia. - AMOXICILLIN 875 MG TABLET - ACETAMINOPHEN 500 MG TABLET Melanie Louis documented in this encounter [facility] 09-19-2022 Miscellaneous Notes Formatting of this note might be differe nt from the original. Mom states that her meds were sent to [facility] and it should have been [facility], her 2 kids Gin Oshea 10-17-02 and Ervin Nowak 08-10-07 also need resent due to there was only 1 pill and should have been 2. Sravanthi Waters LPN documented in this encounter [facility] 09-17-2022 History and physical note Formatting of this note might be differe nt from the original. This is a 41-year-old female who has 2 pit bulls at home. 1 is positive for worms and may be roundworms could be pinworms of the second they are not certain if the second 1 is positive or not both dogs are frequently friendly and affectionate and lick the family members on the face and hands. The vet recommended that they all get either tested or treated. Nobody wants to get tested in this group I mention stool samples and it was met with carolee. We will go ahead and treat based on just the history The patient will be treated with Vermox 100 mg 2 today and then repeat in 1 week. The dogs are being treated for treated by a vet. documented in this encounter [facility] 05-14-2022 Note ORIGINAL EXAMINATION: CARDIAC SPECT05/14/2022 10:29 am TECHNIQUE: The patient received an intravenous injection of 8.1 mCi of Tc-99m Sestamibi and resting emission tomographic (SPECT) images of the myocardium were acquired. The patient then received an intravenous infusion of 0.4 mg regadenoson (Lexiscan) followed by an additional injection of 24.5 mCi of Tc-99m Sestamibi. Stress phase SPECT images of the myocardium were then acquired. These included ECG-gated images to assess and quantify ventricular function. Low dose CT was acquired for attenuation correction. COMPARISON: Myocardial stress test on 09/29/2014 HISTORY: ORDERING SYSTEM PROVIDED HISTORY: Reason for Exam: SOB chest pain, chest mass, family history of heart disease FINDINGS: Stress and rest images demonstrates grossly normal perfusion through the LV myocardium, without evidence of infarct or stress-induced ischemia. The LV chamber is normal in size. Gated post-stress images reveals normal myocardial contractility. The estimated LVEF is 64%. Low-dose CT demonstrates no overt abnormalities. IMPRESSION: 1. No evidence of infarct or ischemia. 2. LV chamber is normal in size. 3. Normal LV wall motion, with LVEF of 64%. I have personally reviewed the images of this examination and agree with the resident's findings and interpretation. Interpreted by: Ian Hardy DO Preliminary Report By: Jeffrey Viri Electronically signed By Ian Hardy DO Dictated Date: 05/14/2022 11:06:30 AM Prelim Date: 05/14/2022 12:37:15 PM Sign Date: 05/14/2022 12:37:15 PM Ordering Provider: [facility] 05-14-2022 Note DATE OF PROCEDURE: 05/14/2022 Pharmacological stress testing was performed with regadenoson. A dose of 0.4 mg was infused as per protocol. The resting heart rate was 76 beats per minute and increased to 129 beats per minute during the infusion. Resting blood pressure was 145/90 and decreased to 120/76, which is a normal response. The patient developed only nonspecific symptoms, which all resolved at recovery. Rest EKG demonstrated normal sinus rhythm without ST segment changes consistent with myocardial ischemia. During the stress test the patient did not develop EKG changes suggestive of ischemia. IMPRESSION: The EKG portion of the Lexiscan stress test is negative for inducible ischemia. Results of nuclear images will be reported separately. IAN KAUR MD DN/NTS JOB#: [id number] DICTATION ID#: [id number] Digitally Signed by IAN KAUR MD on 05/14/2022 06:52 PM Digitally Signed by MERLENE CARL MD [facility] 05-14-2022 Note ORIGINAL EXAMINATION: CARDIAC SPECT05/14/2022 10:29 am TECHNIQUE: The patient received an intravenous injection of 8.1 mCi of Tc-99m Sestamibi and resting emission tomographic (SPECT) images of the myocardium were acquired. The patient then received an intravenous infusion of 0.4 mg regadenoson (Lexiscan) followed by an additional injection of 24.5 mCi of Tc-99m Sestamibi. Stress phase SPECT images of the myocardium were then acquired. These included ECG-gated images to assess and quantify ventricular function. Low dose CT was acquired for attenuation correction. COMPARISON: Myocardial stress test on 09/29/2014 HISTORY: ORDERING SYSTEM PROVIDED HISTORY: Reason for Exam: SOB chest pain, chest mass, family history of heart disease FINDINGS: Stress and rest images demonstrates grossly normal perfusion through the LV myocardium, without evidence of infarct or stress-induced ischemia. The LV chamber is normal in size. Gated post-stress images reveals normal myocardial contractility. The estimated LVEF is 64%. Low-dose CT demonstrates no overt abnormalities. IMPRESSION: 1. No evidence of infarct or ischemia. 2. LV chamber is normal in size. 3. Normal LV wall motion, with LVEF of 64%. I have personally reviewed the images of this examination and agree with the resident's findings and interpretation. Interpreted by: Ian Hardy DO Preliminary Report By: Jeffrey Meredith Electronically signed By Ian Hardy DO Dictated Date: 05/14/2022 11:06:30 AM Prelim Date: 05/14/2022 12:37:15 PM Sign Date: 05/14/2022 12:37:15 PM Ordering Provider: [facility] 03-23-2022 Instructions Jd Royal MD - 03/23/2022 9:40 AM EDT Gargle, lozenges OTC med as needed Recheck if any change F/u PCP explained details documented in this encounter [facility] 03-23-2022 History of Present illness Narrative Cindi Oshea is a 41 year old FEMALE who presents with Sore Throat (5 days only hurts when swollowing, feels lump on right side of neck) Sore throat 5 days Hurts to swallow, no cough History reviewed. No pertinent past medical history. There is no problem list on file for this patient. Current Outpatient Medications Medication Sig Dispense Refill albuterol sulfate 90 mcg/actuation aebs as needed. calcium carbonate (CALCIUM 500) 500 mg calcium (1,250 mg) tablet Take by mouth once daily. budesonide-formoterol (SYMBICORT) 160-4.5 mcg/actuation inhaler as needed. Ascorbic Acid (VITAMIN C) 100 mg tablet once daily. cetirizine (ZYRTEC) 10 mg tablet cetirizine 10 mg tablet take 1 tablet by mouth once daily colestipol (COLESTID) 1 gram tablet estradiol 5 mg/mL injection Inject 1 mg intramuscularly every 3 months. medroxyprogesterone acetate (DEPO-PROVERA INTRAMUSC.) every 3 months. calcium phosphate dibas/vit D3 (VITAMIN D, WITH CALCIUM, ORAL) Vitamin D (Patient not taking: Reported on 03/23/2022) No current facility-administered medications for this visit. Social History Tobacco Use Smoking status: Never Smoker Smokeless tobacco: Never Used Vaping Use Vaping Use: Never used Substance Use Topics Alcohol use: Not Currently Drug use: Never Alcohol Use: Not Currently Tobacco Use: Never History reviewed. No pertinent family history. Review of Systems HENT: Positive for sore throat. All other systems reviewed and are negative. BP 142/82 Pulse 60 Temp 97.9 Resp 18 Wt 187 lb 3.2 oz (84.9kg) SpO2 100% Physical Exam Vitals reviewed. Constitutional: Appearance: Normal appearance. HENT: Nose: Nose normal. Mouth/Throat: Pharynx: Posterior oropharyngeal erythema (injected pharynx) present. Cardiovascular: Rate and Rhythm: Normal rate and regular rhythm. Heart sounds: Normal heart sounds. Pulmonary: Effort: Pulmonary effort is normal. Breath sounds: Normal breath sounds. Neurological: Mental Status: She is alert. ASSESSMENT/PLAN: 1. Sore throat - ICD9: 462, ICD10: J02.9 (primary diagnosis) - RAPID GROUP A STREP RFLX TO CULT - THROAT CULTURE 2. Viral pharyngitis - ICD9: 462, ICD10: J02.9 Gargle, lozenges OTC med as needed Recheck if any change F/u PCP explained details Jd Royal MD documented in this encounter [facility] 07-04-2021 Evaluation + Plan note Future Scheduled TestsCT Thorax w/ Contrast 07/04/21 [facility] 07-04-2021 Evaluation + Plan note Future Scheduled TestsCT Thorax w/ Contrast 07/04/21 [facility] 06-21-2020 History of Present illness Narrative DATE OF SERVICE: 06/21/2020 REASON FOR VISIT: Chest pain when coughing. HISTORY OF PRESENT ILLNESS: This is a 39-year-old female who has been having some coughing and pressure in the chest for the last 3 weeks. She also has pain when she lies down in the front of her chest. No shortness of breath. Patient stated that [place] her symptoms happened, and later on, gradually started having symptoms of congestion and coughing and then chest discomfort. Denied any chest pain otherwise. She also had been doing some lifting activities recently, although that activity has now stopped. It slightly hurts when she pushes on her ribs on the front of her chest wall. No fever or chills. No body aches. No nausea, vomiting, or diarrhea. She has not been exposed to COVID-19 patients. ALLERGIES: NAPROXEN and MOBIC. MEDICATIONS: Reviewed. PHYSICAL EXAMINATION: She is awake, alert, not in distress. No dyspnea. She does not look ill. Temperature 97.8, blood pressure 127/89, pulse 68, respirations 14, pulse oximetry 98%. Pain score 6/10. HEENT: Unremarkable. Chest has minimal rhonchi. No wheezing. Heart: Regular rate and rhythm. She has mild discomfort on the pressure on the anterior chest wall on both sides. It is reproducible tenderness, but not very significant. Good chest expansion. Breath sounds were equal on both sides. IMAGING: Chest x-ray did not show any acute changes. ASSESSMENT: Acute bronchitis with chest wall strain. PLAN: Clinical findings were discussed with the patient in detail. I explained to her that the symptoms are most likely from mild bronchitis. It has been going on for 3 weeks; so, I decided to treat her with Z-Lamin as directed, 1 pack with no refills. She can take Mucinex and cough medicine as needed. Regarding the pain, there is reproducible pain on the upper part of her anterior chest wall. This is most likely due to chest wall strain from her lifting recently. I explained to her that the radiologist will review and give the final x-ray report, but I did not see anything significant on the chest x-ray. She should follow with her doctor for further evaluation and care. Patient understands and agrees. Her questions were answered to her satisfaction. Jd Royal MD [id number] SSI File#: [id number] END OF DOCUMENT / CHANGE LOG FOLLOWS Last Edited By Elec. Signed By Jd Royal MD #[id number] Jd Royal MD #[facility] on 06/21/2020 14:42 ET on 06/21/2020 14:42 ET Revision Number - 2 ^^^ Verified/Reviewed by 06/21/20 1442 [facility] PATIENT NAME: CINDI OSHEA [address] [address] Juares MEDICAL REC #: [id number] [place] [address] [facility] REPORT [facility] PHYSICIAN documented in this encounter [facility] Evaluation + Plan note Future Appointments Appointment Date:05/31/2022 01:30:00 PM Scheduled Provider: Location:XRAY Appointment Type:CT Chest w/ Contrast Future Scheduled TestsCT Thorax w/ Contrast 07/04/21 [facility] Evaluation + Plan note Future Appointments Appointment Date:06/27/2022 07:00:00 AM Scheduled Provider: Location:[facility] Appointment Type:CV Procedure - Echo (Adult) Future Scheduled TestsCT Thorax w/ Contrast 07/04/21 [facility] Evaluation + Plan note Future Appointments Appointment Date:12/31/2022 09:00:00 AM Scheduled Provider: Location:[facility] Appointment Type:[place] Mammogram Screening Bilateral w/ Farhan Appointment Date:01/13/2023 07:00:00 AM Scheduled Provider: Location:CT Appointment Type:CT Urogram Future Scheduled TestsBasic Metabolic Panel 12/30/22[facility] Mammo Screening Bilateral w/ Farhan 12/31/22CT Urogram 01/13/23 [facility] Evaluation + Plan note Future Appointments Appointment Date:02/10/2023 09:00:00 AM Scheduled Provider:LEENA MCKEON Location:UROLOGY Appointment Type:URO OV Diagnostic Tests PendingTGT Ab (IGA) 01/14/23Gliadin Antibody 01/14/23 [facility] Evaluation + Plan note Future Appointments Appointment Date:03/04/2023 08:20:00 AM Scheduled Provider:LEENA MCKEON Location:UROLOGY Appointment Type:URO OV [facility] Evaluation + Plan note Future Appointments Appointment Date:09/16/2023 08:20:00 AM Scheduled Provider:LEENA MCKEON Location:UROLOGY Appointment Type:URO OV Future Scheduled TestsUS Renal 09/03/23 [facility] Evaluation + Plan note Future Appointments Appointment Date:09/21/2024 08:20:00 AM Scheduled Provider:LEENA MCKEON Location:UROLOGY Appointment Type:URO OV Future Scheduled TestsUS Renal 09/16/24 [facility] documented in this encounter [facility] note* Diagnosis History of pinworm infection- Primary Personal history of other infectious and parasitic disease documented in this encounter [facility] note* Diagnosis Strep throat- Primary Streptococcal sore throat documented in this encounter [facility] note* Diagnosis Seborrheic dermatitis Unspecified seborrheic dermatitis documented in this encounter [facility] note* Diagnosis Sinobronchitis- Primary Unspecified sinusitis (chronic) documented in this encounter [facility] course Narrative No data available for this section [facility] Hospital Discharge instructions No data available for this section [facility] Progress note No data available for this section [facility] Summary Purpose Family History No Family History Records Found No data available for this section No Family History Records FoundNo Family History Records Found Advance Directives No Advanced Directives Records FoundNo Advanced Directives Records FoundNo Advanced Directives Records Found Additional Source Comments Source Comments (unrecognize d section and content) In the event this informatio n is protected by the Federal Confidentiality of Alcohol and Drug Abuse Patient Records regulations: The Federal rules restrict any use of the information to criminally investigate or prosecute any alcohol or drug abuse patient.[facility] the event this information is protected by the Federal Confidentiality of Alcohol and Drug Abuse Patient Records regulations: The Federal rules restrict any use of the information to criminally investigate or prosecute any alcohol or drug abuse patient.[facility] SystemIn the event this information is protected by the Federal Confidentiality of Alcohol and Drug Abuse Patient Records regulations: The Federal rules restrict any use of the information to criminally investigate or prosecute any alcohol or drug abuse patient.[facility]In the event this information is protected by the Federal Confidentiality of Alcohol and Drug Abuse Patient Records regulations: The Federal rules restrict any use of the information to criminally investigate or prosecute any alcohol or drug abuse patient.[facility]In the event this information is protected by the Federal Confidentiality of Alcohol and Drug Abuse Patient Records regulations: The Federal rules restrict any use of the information to criminally investigate or prosecute any alcohol or drug abuse patient.[facility] SystemIn the event this information is protected by the Federal Confidentiality of Alcohol and Drug Abuse Patient Records regulations: The Federal rules restrict any use of the information to criminally investigate or prosecute any alcohol or drug abuse patient.[facility] SystemIn the event this information is protected by the Federal Confidentiality of Alcohol and Drug Abuse Patient Records regulations: The Federal rules restrict any use of the information to criminally investigate or prosecute any alcohol or drug abuse patient.[facility] Reason for Visit (unrecogniz ed section and content) Reason Comments Abdominal Pain Patient seeing a GI specialist for ongoing issueBlurred vision todayCurrent concern family pet being treated for worms Reason Comments Medication Problem Reason Comments Sore Throat Started yesterday Reason Comments Appointment Reason Onset Date Comments Appointment Request 03/20/2023 Reason Comments Seborrheic Dermatitis BIT GRINDER (ROHIT) Specialty Diagnoses / Procedures Referred By Contac t Referred To Contact Dermatology Diagnoses Red, itchy spot on forehead Procedures Self Referral [facility] Derm [address] [place] [address] [facility] Derm [address] [place] [address] Referral ID Status Reason Start Date Expiration Date V isits Requested Visits Authorized [id number] Pending Review 03/26/2023 03/25/2024 1 1 Reason Comments Cough Congestion 2 weeks Reason Onset Date Comments Appointment 10/20/2023 Rescheduling Care Teams (unrecognized sec tion and content) Uniform Maker Relationship Specialty Start Date End Date Astrid Cadet(Historical), BIT GRINDER PCP - General Family Medicine 03/23/22 Uniform Maker Relationship Specialty Start Date End Date Astrid Cadet(Historical), BIT GRINDER PCP - General Family Medicine 03/23/22 Uniform Maker Relationship Specialty Start Date End Date Astrid Cadet(Historical), BIT GRINDER PCP - General Family Medicine 03/23/22 Uniform Maker Relationship Specialty Start Date End Date Astrid Cadet(Historical), BIT GRINDER PCP - General Family Medicine 03/23/22 Uniform Maker Relationship Specialty Start Date End Date Astrid Cadet(Historical), BIT GRINDER PCP - General Family Medicine 03/23/22 Care Team (unrecognized sect ion and content) Care Team Personnel Name: LORENA WOODARD MD Position: P3 Physician - Landscaper Med Service: Active Provider Member Role: Religious Activities Director Address: Address: [address] [address] Name: ASTRID CORTEZ OCEAN FISHING GUIDE-FAMILY SERVICE WORKER Position: Advanced Practice Nurse Med Service: Active Provider Member Role: Primary Care Physician Address: Address: [address] [place] [address], [place] [address]- [place] Care Team Related Persons Name: MARBELLA IZQUIERDO Name: MARBELLA IZQUIERDO Name: ARABELLA IZQUIERDO Name: PATTIE OSHEA Address: Home [id number] [place] [phone] [place] Name: DIANA OSHEA C Address: Home [id number] [place] [phone] [place] Name: RONEL MCKINNEY Care Team Personnel Name: LORENA WOODARD MD Position: P3 Physician - Landscaper Med Service: Active Provider Member Role: Religious Activities Director Address: Address: [address] [place] [address], [facility]- Name: ASTRID CORTEZFAMILY SERVICE WORKER Position: Advanced Practice Nurse Med Service: Active Provider Member Role: Primary Care Physician Address: Address: [address] [place] [address]- Care Team Related Persons Name: MARBELLA IZQUIERDO Name: MARBELLA IZQUIERDO Name: ARABELLA IZQUIERDO Name: PATTIE OSHEA Address: Home [id number] [place] [phone] [place] Name: DIANA OSHEA Address: Home [address] [place] [phone] [place] Name: RONEL MCKINNEY Care Team Personnel Name: LORENA WOODARD MD Position: P3 Physician - Landscaper Med Service: Active Provider Member Role: Religious Activities Director Address: Address: [address] [place] [address], [place] [address]- Name: ASTRID CORTEZFAMILY SERVICE WORKER Position: Advanced Practice Nurse Med Service: Active Provider Member Role: Primary Care Physician Address: Address: [address] [place] [address]- Care Team Related Persons Name: MARBELLA IZQUIERDO Name: MARBELLA IZQUIERDO Name: ARABELLA IZQUIERDO Name: PATTIE OSHEA Address: Home [address] [place], [place] [phone] [place] Name: DIANA OSHEA C Address: Home [address] [place] [phone] Name: RONEL MCKINNEY Care Team Personnel Name: LORENA WOODARD MD Position: P3 Physician - Landscaper Med Service: Active Provider Member Role: Religious Activities Director Address: Address: [address] [place] [address] Name: ASTRID CORTEZFAMILY SERVICE WORKER Position: Advanced Practice Nurse Med Service: Active Provider Member Role: Primary Care Physician Address: Address: [address] [place] [address] Care Team Related Persons Name: MARBELLA IZQUIERDO Name: MARBELLA IZQUIERDO Name: ARABELLA IZQUIERDO Name: PATTIE OSHEA Address: [address] [phone] [place] Name: DORIE DIANA Address: [address] [phone] [place] Name: RONEL MCKINNEY Care Team Personnel Name: LORENA WOODARD MD Position: P3 Physician - Landscaper Member Role: Religious Activities Director Address: Address: [address] [place] [address] Name: ASTRID CORTEZFAMILY SERVICE WORKER Position: Advanced Rn Icu Member Role: Primary Care Physician Address: Address: [address] [place] [address] Care Team Related Persons Name: MARBELLA IZQUIERDO Name: MARBELLA IZQUIERDO Name: ARABELLA IZQUIERDO Name: PATTIE OSHEA Address: Home [address] [place] [phone] [place] Name: DORIE DIANA Address: Home [address] [place] [phone] [place] Name: RONEL MCKINNEY INFORMATION SOURCE (unrecogn ized section and content) DATE CREATED AUTHOR AUTHOR'S ORGANIZ ATION 09/28/2023 [facility] ([place]) DATE CREATED AUTHOR AUTHOR'S ORGANIZ ATION 10/21/2023 [facility] FOR RECORDS PERTAINING TO PATIENTS WHO ARE OR HAVE BEEN ENROLLED IN A CHEMICAL DEPENDENCY/SUBSTANCEABUSE PROGRAM, SOME INFORMATION MAY BE OMITTED. This clinical summary was aggregated from multiple sources. Caution should be exercised in using it in the provision of clinical care. This summary normalizes information from multiple sources, and as a consequence, information in this document may materially change the coding, format and clinical context of patient data. In addition, data may be omitted in some cases. CLINICAL DECISIONS SHOULD BE BASED ON THE PRIMARY CLINICAL RECORDS. [facility]. provides no warranty or guarantee of the accuracy or completeness of information in this document.
== END | disposition home or self-care (01) ==
LOC: MTRAD 11:39
PROVIDERS: Visit Provider Physician Assistant
DX: R52 Pain, unspecified (principal)
CPT/HCPCS: A4216; J7030; 73630

== ENCOUNTER → 2024-12-14 | Outpatient (CLI) | payer MEDICAID, SELFPAY ==
--- NOTE | 2024-12-14 15:35 | RAD_ITS ---
PROCEDURE: ABDOMEN PLUS OBLIQUE 12/14/2024 REASON FOR EXAM: CONSTIPATION W/ ? FB TECHNIQUE: AP and oblique views of the abdomen were obtained. COMPARISON: No radiopaque foreign body identified. FINDINGS: No visible bowel dilatation. Colonic stool burden appears low. No visible radiopaque foreign body identified. No visible acute bony abnormality. Few faintly visible presumed pelvic phleboliths. RAD/Abdomen Plus Oblique IMPRESSION: 1. No visible acute abnormality or radiopaque foreign body identified. Correla te with the nature and location of the suspected possible foreign body and consider CT as indicated. 2. Colonic stool burden appears low. Reading Location: [id number]
== END | disposition home or self-care (01) ==
LOC: MTRAD 15:26
PROVIDERS: Visit Provider Physician Assistant
DX: K59.00 Constipation, unspecified (principal)
CPT/HCPCS: 74019